=== PATIENT | female | born 1945 | race Caucasian/White ===

== ENCOUNTER 2019-04-25 08:33 | Observation (INO) | payer MEDICARE ==
[2019-04-25] MEDS ORDERED: Clindamycin 900 MG/D5W BAG(*) 900 MG/50 ML BAG IVPB ONE (09:04)
[2019-04-25] MEDS: Buffered Lidocaine 1% SYRIN* 1 ML/SYRINGE INTRADERM ONE (09:22)
[2019-04-25] MEDS: Lactated Ringers 1000 ML Bag* 1,000 ML IV SCH ×2 (09:22→19:09)
[2019-04-25] MEDS ORDERED: fentaNYL* 50 MCG/ML 2 ML VIAL (100 MCG VIAL) ONE ×2 (10:59→12:29)
[2019-04-25] MEDS ORDERED: Bupivacaine 0.25% SDV PF* 10 ML VIAL INJ ONE (11:24)
[2019-04-25] MEDS ORDERED: Ondansetron INJ* 2 MG/ML VIAL ONE (12:08)
[2019-04-25] MEDS ORDERED: Dexamethasone IV* 4 MG/ML 1 ML (4 MG) ONE (12:08)
[2019-04-25] MEDS ORDERED: Propofol* 10 MG/ML 20 ML BTL ONE (12:08)
[2019-04-25] MEDS ORDERED: Lidocaine 2% PF * 5 ML VIAL ONE (12:08)
[2019-04-25] MEDS ORDERED: EPHEDrine (Pressors)* 50 MG/ML VIAL ONE (12:11)
[2019-04-25] MEDS ORDERED: Naloxone* 0.4 MG/ML 1 ML VIAL IV PRN (14:08)
[2019-04-25] MEDS ORDERED: PROCHLORPERAZINE INJ 5 MG/ML 2 ML VIAL IV PRN (14:08)
[2019-04-25] MEDS ORDERED: Acetaminophen TAB* 325 MG PO PRN (14:08)
[2019-04-25] MEDS ORDERED: HYDROmorphone INJ1* 1 MG/ML SYRINGE ONE ×2 (15:05→16:01)
[2019-04-25] MEDS: HYDROmorphone INJ1* 1 MG/ML SYRINGE IV PRN ×6 (15:06→16:03)
[2019-04-25] MEDS ORDERED: Ondansetron INJ* 2 MG/ML VIAL IV PRN ×2 (18:28→19:18)
[2019-04-25] MEDS ORDERED: HYDROcodone/ACETAMIN 5-325 MG* 1 TAB PO PRN (19:17)
[2019-04-25] MEDS ORDERED: Ibuprofen TAB* 600 MG PO PRN (19:18)
[2019-04-25] MEDS ORDERED: Lactated Ringers 1000 ML Bag* 1,000 ML IV SCH (20:00)
--- NOTE | 2019-04-25 23:55 | OP ---
DATE OF OPERATION: 04/25/19 - ROOM #349 DATE OF : 49 SURGEON: Collins Jimenez MD CLIN TECH: RADHA Valenzuela ANESTHESIOLOGIST: Dr. Sharif. ANESTHESIA: General PRE-OP DIAGNOSES: 1. 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 2. Left thumb metacarpophalangeal joint gross laxity and recurvatum deformity. POST-OP DIAGNOSES: 1. 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 2. Left wrist scaphotrapezoid degenerative joint disease. 3. Left thumb metacarpophalangeal joint laxity. OPERATIVE PROCEDURES: 1. Revision left thumb carpometacarpal arthroplasty with release of scar tissue that built up around the metacarpal base. 2. Left wrist distally based split flexor carpi radialis tendon transfer for thumb suspension and tendon interposition. 3. Left wrist partial trapeziectomy. 4. Left thumb metacarpophalangeal joint arthrodesis utilizing a mini Acutrak screw. INDICATIONS: Ms. Pittman had a previous surgery done. The thumb has not been right for quite some time. We treated her nonoperatively for a distal radius fracture, it is all healed up, but the thumb base continues to be significantly symptomatic. There was some question about whether or not this was due to preexisting condition or this was exacerbated by her fall at the [employer] where she broke her wrist. I think that it is fair to say that the deformity existed prior to the surgery; however, it began to be symptomatic and painful after the fall. Beyond that it is difficult to say. ESTIMATED BLOOD LOSS: 2 mL. COMPLICATIONS: None. FINDINGS: See above and below. DESCRIPTION OF PROCEDURE: Ms. Pittman was seen in the preoperative holding area. The correct site, side and procedures were identified. We came back to the operating room. The arm was prepped and draped in the usual fashion. Time- out was performed. The arm was exsanguinated with Esmarch and the tourniquet was inflated to 225 mmHg. I made a 2 to 3-cm incision over the dorsal radial thumb base. Dissection was carried down and full thickness flaps were raised off of the fascia. I incised the periosteum and fascia longitudinally to expose the site of the prior trapeziectomy. The soft tissue all on the thumb metacarpal base was released until I could get the thumb back into a nice position. There was a bone spur on the proximal and dorsal radial aspect of the thumb metacarpal base. This was excised with a rongeur. Once I had removed all the scar tissue and mobilized the FCR tendon in the base of the wound, I did go and have a look at the scaphotrapezoid joint, there was full thickness cartilage loss there. I went ahead and used the osteotome and excised the proximal 3 mm of trapezoid. This came out uneventfully, I then placed bone wax in the cancellous bed on the proximal portion of the trapezoid. I then made a bone tunnel using sequentially larger drill bits from the dorsal radial metacarpal base and exiting out the volar ulnar articular surface near the base of the second metacarpal. I then harvested the tendon by making a 1-cm incision over the distal FCR tendon just proximal to the wrist flexion crease. The sheath was released. The tendon was brought up out the wound and split longitudinally with a 15 blade and a 26- gauge wire was passed into the tendon split. I then made 2 more 1-cm transverse incisions, each about 7 or 8 cm proximal to the left. The sheath was released along the length of the tendon. A Arleen clamp was used to pull the wire under the skin, up into the proximal wound releasing half the tendon at the musculotendinous junction. I then opened up the FCR tendon sheath , tracked distally and then used a 26-gauge wire to suture shuttle the free end of the tendon down into the thumb metacarpal base. The split in the tendon was released all the way down to the base of the second metacarpal were it attaches. The free end of the tendon was brought up through the bone tunnel back around the intact limb and then maximum tension was set and tendon transfer was secured with multiple 3-0 Ethibond [id number] sutures, the first sewing all 3 limbs of the tendon transfer together, the last 2 sewing intact limb to intact limb. I did go ahead and take some allograft and I cut a strip, which I then folded into 4, the edges were secured with 4-0 Ethibond suture. This was then docked as an interposition between the base of the trapezoid and the distal pole of the scaphoid. An addition piece was docked as an interposition between the base of the metacarpal and distal pole of the scaphoid. At this point, everything was looking good. The wound was irrigated out. The capsule was closed with 4-0 Vicryl suture. The radial artery had been preserved throughout the procedure. I then made a longitudinal incision over the thumb MP joint. The tendon was split to expose the MCP joint. The capsule was released. The Acumed reamers were used to take off the cartilage and subchondral bone off the end of the metacarpal head. This came off uneventfully. The bone was very soft and when I reamed off the proximal phalanx, it advanced very quickly into the bone, but ultimately we ended up getting very nice apposition. A guidewire was placed for a mini Acutrak screw. I measured and selected the longest screw we had, which was a 30. We then drilled and then I placed the Mini Acutrak screw in standard fashion. We got excellent compression across the fusion site. The MP joint was in about 30 degrees of flexion. We got a very nice ethnic fit from the screw distally. I did take a little bit of local bone graft and packed it around the edges. Final fluoroscopic imaging showed very nice alignment and I could not visualize the joint space as the bone edges where very nicely compressed. The tendon split were repaired with 4-0 Prolene suture. All the wounds were irrigated out and closed with 4-0 nylon suture. 0.25% Marcaine was infiltrated all about the operative areas. The wounds were dressed with Xeroform, 4x4s, sterile Webril and then a thumb spica splint leaving the IP joint able to flex and extend somewhat, was applied. The tourniquet was deflated and she was taken to the recovery room in stable condition. [id number]/[facility] #: [id number] GUTIERREZ
[2019-04-26] MEDS: HYDROcodone/ACETAMIN 5-325 MG* 1 TAB PO PRN ×2 (00:46→09:30)
[2019-04-26] MEDS: Buffered Lidocaine 1% SYRIN* 1 ML/SYRINGE INTRADERM ONE (02:43)
--- NOTE | 2019-04-26 08:03 | DS ---
Orthopedic Discharge Summary - Discharge Summary Date of Admission:04/25/19 Date of Discharge: 04/26/19 Date of Surgery: 04/25/19 Attending Orthopedic Provider: Dr. 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 Patient has failed conservative management and has elected to undergo a revision left CMC arthroplasty. Hospital Course: GURMEET was admitted to [facility] on 04/25/19 after having an episode of oxygen de-saturation post operatively. She was transferred to the Short Stay Surgical Unit in for continuous O2 monitoring. Post-op day 1 : patient was alert and in no acute distress. Dressing was clean, dry and intact. Operative extremity showed all non splinted digits with full flexion and extension. Sensation was intact in all 5 digits. Her O2 sat has been 96 - 98 on room air as recorded by the nurses. In the room she achieved an O2 sat of 100 while conversing. Patient was deemed to be medically and orthopedically stable for discharge. Home Medications Medication Instructions Recorded Confirmed Type Citalopram TAB* 40 mg PO QAM 04/22/14 04/25/19 History Ibuprofen 1 tab PO PRN 04/22/14 04/22/14 History Tylenol 1 tab PO Q4H PRN 04/22/14 04/25/19 History HYDROcodone/ACETAMIN 5-325 MG* 1 tab PO Q4H PRN tab 04/26/19 Rx [[place] 5-325 TAB*] HYDROcodone/ACETAMIN 5-325 MG* 2 tab PO Q4H PRN tab 04/26/19 Rx [[place] 5-325 TAB*] Discharge Instructions following Orthopedic Surgery: Activity: Elevate extremity often to decrease swelling and pain Apply ice as needed to operative site Move all fingers that are not splinted Wound care: * Keep dressing on, clean, dry and intact until post op follow up appointment. Call Orthopedic office for: * Increased drainage * Redness * Increased pain * Fever Go to ER with shortness of breath or chest pain. Diet: * Regular diet * Increase fluids and fiber to prevent constipation. * Continue to use stool softeners, call office if no bowel motion within 48 hours. Medications See Home Medication List in your packet for medications that you should take after discharge. Pain Control: [place] Dosin/325 mg 1-2 tabs by mouth every 4-6 hours as needed for pain. Maximum of 10 tabs per day[facility] Please note that [place] contains Tylenol (acetaminophen). Maximum daily dose of Tylenol is 3000 mg from all sources. FOLLOW UP: Follow up with [Barbara] Within 10-14 days, call for appointment Please call our office with any questions or concerns ([phone])
[2019-04-26] MEDS ORDERED: Citalopram TAB* 40 MG PO SCH (09:00)
[2019-04-26 11:35] VITALS: BP 117/51
== END 2019-04-26 12:15 | disposition home or self-care (01) ==
LOC: OR 08:33 → SSU 20:55
PROVIDERS: ADMIT Orthopaedic Surgery Hand Surgery; ATTEND Orthopaedic Surgery Hand Surgery
DX: M18.12 Unilateral primary osteoarthritis of first carpometacarpal joint, left hand (principal); M24.242 Disorder of ligament, left hand; M19.032 Primary osteoarthritis, left wrist; F41.9 Anxiety disorder, unspecified; F32.9 Major depressive disorder, single episode, unspecified; M79.7 Fibromyalgia; K52.9 Noninfective gastroenteritis and colitis, unspecified; E78.5 Hyperlipidemia, unspecified; M19.90 Unspecified osteoarthritis, unspecified site; B27.00 Gammaherpesviral mononucleosis without complication; Z79.899 Other long term (current) drug therapy
CPT/HCPCS: A9270-GY; C1713; C1776; G0378; J1100; J1170; J2405; J2704; J3010; J3490; Q4116